=== PATIENT | female | born 1960 | race African-American/Black ===

== ENCOUNTER 2022-10-11 02:10 | Observation (INO) | payer OTHER ==
[2022-10-11] VITALS (7 sets, daily range): BP systolic 106–128; BP diastolic 67–85; PULSE 69–101; RESP 18–20; TEMP 96.8–98; O2SAT 69–100
[~2022-10-11] VITALS: Ht 162.6 cm; Wt 94.3 kg
[2022-10-11 03:15] LABS: BASOPHILS % (AUTO) 0.1 % (0.0-2.0); EOSINOPHILS % (AUTO) 0.4 % (0.0-4.0); HEMATOCRIT 30.6 % (36-48); HEMOGLOBIN 9.7 g/dL (12.0-16.0); LYMPHOCYTES % (AUTO) 11.7 % (20.5-51.1); MEAN CORPUSCULAR HEMOGLOBIN 24 pg (27-31); MEAN CORPUSCULAR HGB CONC 32 g/dL (33-37); MEAN CORPUSCULAR VOLUME 75.7 fL (80-94); MONOCYTES # (AUTO) 0.5 K/uL (0.8-1.0); MONOCYTES % (AUTO) 5.5 % (1.7-9.3); NEUTROPHILS # (AUTO) 6.7 K/uL (1.8-7.7); NEUTROPHILS % (AUTO) 82.3 % (42.2-75.2); PLATELET COUNT (AUTO) 595 K/uL (140-450); RED BLOOD CELL COUNT(AUTO) 4.05 MIL/uL (4.20-5.40); RED CELL DISTRIBUTION WIDTH 18.9 % (11.6-13.7); WHITE BLOOD COUNT (AUTO) 8.2 K/uL (4.8-10.8)
[2022-10-11 03:30] LABS: ALBUMIN 1.4 g/dL (3.4-5.0); ANION GAP 10.4 (8-16); CALCIUM 8.3 mg/dL (8.5-10.1); CREATININE 0.9 mg/dL (0.6-1.3); POTASSIUM 3.4 mmol/L (3.5-5.1); TOTAL BILIRUBIN 0.3 mg/dL (0.0-1.0); TOTAL PROTEIN, SERUM 6.8 g/dL (6.4-8.2)
[2022-10-11] MEDS ORDERED: ASPIRIN 325 MG TAB PO ONE (04:30)
[2022-10-11] MEDS ORDERED: AMLO5TAB PO (05:48)
[2022-10-11] MEDS ORDERED: ACET-2619 PO (05:48)
[2022-10-11] MEDS ORDERED: [UNRECOGNIZED DRUG - CODE] PO (05:48)
[2022-10-11] MEDS ORDERED: FAMO-90 PO (05:48)
[2022-10-11] MEDS ORDERED: ATOR20TA PO (05:48)
[2022-10-11] MEDS ORDERED: PANT40EC PO (05:48)
[2022-10-11] MEDS ORDERED: GLUC1VIA (05:48)
[2022-10-11] MEDS ORDERED: GABA300C PO (05:48)
[2022-10-11] MEDS ORDERED: ONDA-188 PO (05:48)
[2022-10-11] MEDS ORDERED: VAN500I (05:48)
[2022-10-11] MEDS ORDERED: INSU100S5 IJ (05:48)
[2022-10-11] MEDS ORDERED: CLON0.1T16 PO (05:48)
[2022-10-11] MEDS ORDERED: EMPA25TA PO (05:48)
[2022-10-11] MEDS ORDERED: ACET-9527 PO (05:48)
[2022-10-11] MEDS ORDERED: METO100T14 PO (05:48)
[2022-10-11] MEDS ORDERED: APIX2.5 PO (05:48)
[2022-10-11] MEDS ORDERED: ASPI-1205 PO (05:48)
[2022-10-11] MEDS ORDERED: LISI-486 PO (05:48)
[2022-10-11] MEDS ORDERED: NACL 0.9% 1,000 ML IV ONE (06:10)
[2022-10-11 08:11] LABS: APPEARANCE,URINE CLEAR (CLEAR); BILIRUBIN,URINE NEGATIVE (NEGATIVE); BLOOD, URINE TRACE-I (NEGATIVE); COLOR,URINE YELLOW (YELLOW); LEUKOCYTE ESTERASE ,URINE TRACE (NEGATIVE); NITRITE, URINE NEGATIVE (NEGATIVE); PROTEIN,URINE 1+ (NEGATIVE); UGLUCOSE 3+ (NEGATIVE); UROBILINOGEN,URINE 0.2 EU/dL (0.2 - 1)
[2022-10-11 08:29] LABS: RBC,URINE 0-5 /HPF (0-5)
[2022-10-11 08:30] LABS: BACTERIA,URINE 1+ /HPF (None Seen); SQUAMOUS EPITHELIAL CELL,UR 20-50 /LPF (0-3 (FEW)); WBC,URINE 80-100 /HPF (0-5)
[2022-10-11] MEDS ORDERED: cefTRIAXone 1,000 MG VIAL ONE (09:30)
[2022-10-11] MEDS ORDERED: ONDANSETRON 4 MG/2 ML VIAL IVP PRN (10:35)
[2022-10-11] MEDS ORDERED: ACETAMINOPHEN 325 MG TAB PO PRN (10:35)
[2022-10-11] MEDS ORDERED: LORazepam 1 MG TAB PO PRN (10:35)
[2022-10-11] MEDS ORDERED: oxyCODONE/APAP 5/325 MG 1 TAB TAB PO PRN (11:05)
[2022-10-11] MEDS: HYDROcodone/APAP 5/325 MG 1 TAB TAB PO PRN (23:30)
[2022-10-12] MEDS: ZOLPIDEM 5 MG TAB PO PRN ×2 (00:14→23:29)
[2022-10-12 06:33] LABS: HEMATOCRIT 27.9 % (36-48); HEMOGLOBIN 8.9 g/dL (12.0-16.0); MEAN CORPUSCULAR HEMOGLOBIN 24 pg (27-31); MEAN CORPUSCULAR HGB CONC 32 g/dL (33-37); MEAN CORPUSCULAR VOLUME 75.4 fL (80-94); PLATELET COUNT (AUTO) 566 K/uL (140-450); RED CELL DISTRIBUTION WIDTH 19.4 % (11.6-13.7); WHITE BLOOD COUNT (AUTO) 7.2 K/uL (4.8-10.8)
[2022-10-12 07:05] LABS: ALBUMIN 1.2 g/dL (3.4-5.0); ANION GAP 10.6 (8-16); CALCIUM 8.1 mg/dL (8.5-10.1); CARBON DIOXIDE 24.8 mmol/L (21-32); CREATININE 0.9 mg/dL (0.6-1.3); MAGNESIUM 1.4 mg/dL (1.8-2.4); PHOSPHORUS 3.2 mg/dL (2.5-4.9); POTASSIUM 3.4 mmol/L (3.5-5.1); TOTAL BILIRUBIN 0.2 mg/dL (0.0-1.0); TOTAL PROTEIN, SERUM 6.3 g/dL (6.4-8.2)
[2022-10-12 07:20] LABS: BASOPHILS % (MANUAL) 1 % (0-2); EOSINOPHILS % (MANUAL) 2 % (0-4); LYMPHOCYTES % (MANUAL) 5 % (20-46); MONOCYTES % (MANUAL) 4 % (5-12)
[2022-10-12 07:21] LABS: HYPOCHROMASIA 2+
[2022-10-12 08:00] VITALS: PULSE 73; PULSE 99; RESP 20; O2SAT 99
[2022-10-12] MEDS: DOCUSATE SODIUM 100 MG GELCAP PO SCH (08:51)
[2022-10-12] MEDS: HYDROcodone/APAP 5/325 MG 1 TAB TAB PO PRN ×3 (09:56→23:26)
[2022-10-12] MEDS ORDERED: HYDR-5191 PO (11:29)
[2022-10-12] MEDS ORDERED: MAG SULF 2000 MG/WATER PREMIX 50 ML IV PRN (11:35)
[2022-10-12] MEDS ORDERED: POTASSIUM CHLORIDE 10 MEQ TABER PO SCH (12:00)
[2022-10-12 16:00] VITALS: BP 105/64; PULSE 73; RESP 18; TEMP 97.3; O2SAT 100
[2022-10-12 20:00] VITALS: PULSE 73; PULSE 79; RESP 18; O2SAT 96
[2022-10-13] VITALS: BP 119/72; PULSE 79; RESP 18; TEMP 97.3; O2SAT 96
[2022-10-13 05:37] LABS: HEMATOCRIT 29.1 % (36-48); HEMOGLOBIN 9.4 g/dL (12.0-16.0); MEAN CORPUSCULAR HEMOGLOBIN 24 pg (27-31); MEAN CORPUSCULAR HGB CONC 32 g/dL (33-37); MEAN CORPUSCULAR VOLUME 75.2 fL (80-94); PLATELET COUNT (AUTO) 569 K/uL (140-450); RED BLOOD CELL COUNT(AUTO) 3.87 MIL/uL (4.20-5.40); RED CELL DISTRIBUTION WIDTH 19.4 % (11.6-13.7); WHITE BLOOD COUNT (AUTO) 8.8 K/uL (4.8-10.8)
[2022-10-13 05:57] LABS: ALBUMIN 1.3 g/dL (3.4-5.0); ANION GAP 9.3 (8-16); CALCIUM 8.1 mg/dL (8.5-10.1); CARBON DIOXIDE 26.6 mmol/L (21-32); CREATININE 0.8 mg/dL (0.6-1.3); MAGNESIUM 1.8 mg/dL (1.8-2.4); PHOSPHORUS 3.1 mg/dL (2.5-4.9); POTASSIUM 3.9 mmol/L (3.5-5.1); TOTAL BILIRUBIN 0.3 mg/dL (0.0-1.0); TOTAL PROTEIN, SERUM 6.5 g/dL (6.4-8.2)
[2022-10-13 06:13] LABS: BASOPHILS % (MANUAL) 0 % (0-2); EOSINOPHILS % (MANUAL) 0 % (0-4); LYMPHOCYTES % (MANUAL) 3 % (20-46); MONOCYTES % (MANUAL) 4 % (5-12); PLATELET ESTIMATE ADEQUATE
[2022-10-13 07:12] VITALS: PULSE 73
[2022-10-13 07:13] VITALS: PULSE 80; RESP 20; O2SAT 96
[2022-10-13] MEDS: DOCUSATE SODIUM 100 MG GELCAP PO SCH (08:49)
[2022-10-13] MEDS: HYDROcodone/APAP 5/325 MG 1 TAB TAB PO PRN (11:45)
== END 2022-10-13 14:30 | disposition home or self-care (01) ==
LOC: MED 02:10 → MTU 11:00
PROVIDERS: ADMIT Hospitalist; ATTEND Hospitalist
DX: C76.3 Malignant neoplasm of pelvis (principal); N13.8 Other obstructive and reflux uropathy; G89.3 Neoplasm related pain (acute) (chronic); R07.89 Other chest pain; R10.9 Unspecified abdominal pain; I21.4 Non-ST elevation (NSTEMI) myocardial infarction; D64.9 Anemia, unspecified; N39.0 Urinary tract infection, site not specified; E11.9 Type 2 diabetes mellitus without complications; E78.5 Hyperlipidemia, unspecified; K21.9 Gastro-esophageal reflux disease without esophagitis; Z79.01 Long term (current) use of anticoagulants; Z79.899 Other long term (current) drug therapy
CPT/HCPCS: 36415; 74176; 80053; 81001; 83690; 83735; 84100; 84484; 85025; 87040; 87081; 87086; 93005; 96361; 96365; 96366; 96367; 99285; G0378; J0696; J3475; J7060